=== PATIENT | female | born 1995 ===

== ENCOUNTER 2017-06-09 14:21 | Emergency (ER) | payer BC ==
[2017-06-09 14:21] VITALS: BMI 29.9
--- NOTE | 2017-06-09 15:42 | RAD ---
HISTORY: pain COMPARISON: Chest x-ray performed 06/27/14 TECHNIQUE: Chest PA and lateral FINDINGS: Examination limited by habitus. LUNGS: No focal consolidation. Please note that chest x-ray has limited sensitivity for the detection of pulmonary masses. PLEURA: No significant pleural effusion identified. No definite pneumothorax . CARDIOVASCULAR: Heart size appears within normal limits. OSSEOUS STRUCTURES: No acute osseous abnormality identified. VISUALIZED UPPER ABDOMEN: Unremarkable. OTHER FINDINGS: None. IMPRESSION: No focal consolidation, significant pleural effusion, or definite pneumothorax identified.
--- NOTE | 2017-06-09 16:24 | C.PDOC ---
History Of Present Illness 21 y/o female presents to ED with complaints of right breast pain for 4 days. Patient states she had breast augmentation 1 year ago in [place]. Patient reports she" feels like liquid is moving inside" worse with movement. Patient denies discharge, fever, redness, trauma, nausea, vomiting, numbness or any other complaints at this time. Time Seen by Provider: 06/09/17 14:49 Chief Complaint (Nursing): Breast Problem History Per: Patient History/Exam Limitations: no limitations Onset/Duration Of Symptoms: Days Current Symptoms Are (Timing): Still Present Past Medical History Reviewed: Historical Data, Nursing Documentation, Vital Signs Vital Signs: Last Vital Signs Temp 98 F 06/09/17 16:41 Pulse 84 06/09/17 16:41 Resp 20 06/09/17 16:41 BP 115/75 06/09/17 16:41 Pulse Ox 100 06/09/17 17:38 - [facility] Procedures LOW CERVICAL (06/05/14) Family History: States: Unknown Family Hx - Social History Hx Tobacco Use: No Hx Alcohol Use: No Hx Substance Use: No - Immunization History Hx Tetanus Toxoid Vaccination: Yes Hx Influenza Vaccination: No Hx Pneumococcal Vaccination: No Review Of Systems Except As Marked, All Systems Reviewed And Found Negative. Constitutional: Negative for: Fever, Chills Respiratory: Negative for: Shortness of Breath Gastrointestinal: Negative for: Nausea, Vomiting Skin: Negative for: Rash, Bruising Neurological: Negative for: Weakness, Numbness Physical Exam - Physical Exam Appears: Non-toxic, No Acute Distress Skin: Normal Color, Warm, Dry, No Rash Head: Atraumatic, Normacephalic Eye(s): bilateral: Normal Inspection, EOMI Nose: Normal Oral Mucosa: Moist Neck: Normal ROM, Supple Lymphatic: Normal Exam, No Axilla Node Tenderness Chest: Symmetrical, Tenderness (at 7'oclock right breast, no erythema, fluctuance. Incision healed. ) Cardiovascular: Rhythm Regular Respiratory: Normal Breath Sounds, No Wheezing Extremity: Normal ROM (Pain aggrevated with abduction on the right shoulder.), Capillary Refill (<2 seconds) Extremity: Bilateral: Atraumatic Neurological/Psych: Oriented x3, Normal Speech, Normal Cognition, Normal Sensation ED Course And Treatment O2 Sat by Pulse Oximetry: 100 (RA) Pulse Ox Interpretation: Normal - Other Rad Chest xray X-Ray: Viewed By Me, Read By Radiologist Interpretation: HISTORY: pain. COMPARISON: Chest x-ray performed 06/27/14. TECHNIQUE: Chest PA and lateral. FINDINGS: Examination limited by habitus. LUNGS: No focal consolidation. Please note that chest x-ray has limited sensitivity for the detection of pulmonary masses. PLEURA: No significant pleural effusion identified. No definite pneumothorax . CARDIOVASCULAR: Heart size appears within normal limits. OSSEOUS STRUCTURES: No acute osseous abnormality identified. VISUALIZED UPPER ABDOMEN: Unremarkable. OTHER FINDINGS: None. IMPRESSION: No focal consolidation, significant pleural effusion, or definite pneumothorax identified. - CT Scan/US right breast Other Rad Studies (CT/US): Read By Radiologist, Radiology Report Reviewed CT/US Interpretation: EXAM: US Right Breast Complete. EXAM DATE/TIME: 2016 2:54 PM. CLINICAL HISTORY: 21 years old, female; Pain; Breast pain; Right ; Prior surgery; Surgery date: 6+ months. TECHNIQUE: Static sonographic images of the right breast with image documentation utilizing a linear transducer. Imaging was obtained in all four quadrants, retroareolar region, and the axillae. COMPARISON: No relevant prior studies available. FINDINGS: Solid nodules: None. Cystic masses: None. Architectural distortion: None. Acoustical shadowing: None. Skin thickening: None. Axillary adenopathy: None. IMPRESSION: No mass is identified. Progress Note: Pt refused pain medicaiton. Discussed with pt results and the limitations of ER, instructed to follow up with surgeon in 1-2 days for re- evaluation. Discussed signs and symptoms of concern. Reevaluation Time: 16:31 Reassessment Condition: Improved Disposition - Disposition Referrals: Vin Sandhu MD [Staff Provider] - Disposition: HOME/ ROUTINE Disposition Time: 16:33 Condition: STABLE Additional Instructions: Follow up with breast surgeon in 1-2 days. Prescriptions: Naproxen [Naprosyn] 1 tab PO BID PRN #20 tab PRN Reason: Pain Instructions: Breast Mass (ED) Forms: [facility] (Bahraini) Print Language: DIVEHI - Clinical Impression Clinical Impression: Breast pain - PA / WETLAND SCIENTIST / Resident Statement MD/DO has reviewed & agrees with the documentation as recorded. - Scribe Statement The provider has reviewed the documentation as recorded by the Kellyiblily Del Rosario All medical record entries made by the Scribe were at my direction and personally dictated by me. I have reviewed the chart and agree that the record accurately reflects my personal performance of the history, physical exam, medical decision making, and the department course for this patient. I have also personally directed, reviewed, and agree with the discharge instructions and disposition.
[2017-06-09 16:42] VITALS: BP 115/75; PULSE 84; RESP 20; TEMP 98
[2017-06-09 16:47] VITALS: O2SAT 100
--- NOTE | 2017-06-10 17:11 | US ---
PROCEDURE: Ultrasound bilateral breast HISTORY: pain COMPARISON: Not available TECHNIQUE: Ultrasound examination was performed throughout the right breast. FINDINGS: The patient is status post right augmentation mammoplasty. There is no solid or cystic mass identified. The prosthesis appears intact. There is no evidence of prosthesis rupture. There is no axillary lymphadenopathy identified. IMPRESSION: Right breast prosthesis appears intact. No additional abnormality. Preliminary interpretation of this examination was reported by [facility] at 5:02 p.m. on 06/09/2017. There is concurrence of this report with the preliminary interpretation.
== END 2017-06-09 16:42 | disposition home or self-care (01) ==
LOC: C.ER 14:21
DX: N64.4 Mastodynia (principal)

== ENCOUNTER 2018-05-20 17:11 | Emergency (ER) | payer BC ==
[2018-05-20 17:12] VITALS: BMI 29.9
[2018-05-20 17:19] VITALS: RESP 18
--- NOTE | 2018-05-20 17:46 | C.PDOC ---
History Of Present Illness 22 y/o female presents to the ED complaining of gradual onset headache to left side head starting about 4 days ago. Patient states headache resolved with 2 advil but returns. On first day of headache, pt had several episodes of vomiting. She then noticed redness in left eye. Patient no longer vomiting, tolerates PO food and fluids. Patient with one episode of watery stool today. Otherwise denies any abdominal pain, fever, blurred vision, neck stiffness, dizziness, photophobia. Time Seen by Provider: 05/20/18 17:30 Chief Complaint (Nursing): Headache History Per: Patient History/Exam Limitations: no limitations Onset/Duration Of Symptoms: Days Current Symptoms Are (Timing): Still Present Past Medical History Reviewed: Historical Data, Nursing Documentation, Vital Signs Vital Signs: Last Vital Signs Temp 98.6 F 05/20/18 19:00 Pulse 54 L 05/20/18 19:00 Resp 18 05/20/18 19:00 BP 100/61 05/20/18 19:00 Pulse Ox 97 05/20/18 19:19 - Medical History PMH: No Chronic Diseases Surgical History: Hernia Repair, Other Surgeries: Breast surgery - [facility] Procedures LOW CERVICAL (06/05/14) Family History: States: Unknown Family Hx - Social History Hx Tobacco Use: No Hx Alcohol Use: No Hx Substance Use: No - Immunization History Hx Tetanus Toxoid Vaccination: Yes Hx Influenza Vaccination: No Hx Pneumococcal Vaccination: No Review Of Systems Constitutional: Negative for: Fever, Chills Eyes: Positive for: Redness (left eye). Negative for: Vision Change, Other ( photophobia) Gastrointestinal: Positive for: Vomiting (now resolved), Diarrhea. Negative for : Abdominal Pain Neurological: Positive for: Headache. Negative for: Weakness, Numbness, Dizziness Physical Exam - Physical Exam Appears: Non-toxic, No Acute Distress Skin: No Rash Head: Atraumatic, Normacephalic Eye(s): bilateral: PERRL, EOMI Oral Mucosa: Moist Neck: Normal ROM, No Midline Cervical Tenderness, Supple, No Other (nuchal rigidity) Chest: No Tenderness Cardiovascular: Rhythm Regular, No Murmur Respiratory: Normal Breath Sounds, No Rales, No Rhonchi, No Wheezing Gastrointestinal/Abdominal: Bowel Sounds (normoactive), Soft, No Tenderness, No Distention Extremity: Normal ROM, No Calf Tenderness, No Swelling Neurological/Psych: Oriented x3, Normal Speech, Normal Cranial Nerves, Normal Motor, Normal Sensation ED Course And Treatment O2 Sat by Pulse Oximetry: 97 (RA) Pulse Ox Interpretation: Normal Medical Decision Making Medical Decision Making: Impression: 22 year old with headache Plan: --POC urine preg --IV [id number] pt rpeorts replution of headache. fully comfortable. will d/c home with clinic f/u Disposition Counseled Patient/Family Regarding: Diagnosis, Need For Followup - Disposition Referrals: [facility] [Outside] Disposition: HOME/ ROUTINE Disposition Time: 19:16 Condition: IMPROVED Additional Instructions: Drink increased fluids. Stay well hydrated. Follow up in medical clinic in a few days- call for an appointment. Return to ER for severe headache, vomiting. or any other concerning symptoms. Instructions: Headache, Adult (DC) Forms: General Discharge Instructions, Gen Discharge Inst Mauritanian, [employer] [facility] (Mauritanian) Print Language: CENTRAL AFRICAN - Clinical Impression Clinical Impression: Headache - PA / PARK RANGER / Resident Statement MD/DO has reviewed & agrees with the documentation as recorded. - Scribe Statement The provider has reviewed the documentation as recorded by the Scribe (Kathy Styles) All medical record entries made by the Scribe were at my direction and personally dictated by me. I have reviewed the chart and agree that the record accurately reflects my personal performance of the history, physical exam, medical decision making, and the department course for this patient. I have also personally directed, reviewed, and agree with the discharge instructions and disposition.
[2018-05-20] MEDS ORDERED: Sodium Chloride 0.9% 1,000 ML IV SCH (18:00)
[2018-05-20] MEDS ORDERED: Sodium Chloride 0.9% 1,000 ML ONE (18:07)
[2018-05-20 19:01] VITALS: BP 100/61; PULSE 54; TEMP 98.6
[2018-05-20 19:09] VITALS: O2SAT 97
== END 2018-05-20 19:30 | disposition home or self-care (01) ==
LOC: C.ER 17:11
DX: R51 Headache (principal)
CPT/HCPCS: 96361; 96374; 99285; J2765; J7030

== ENCOUNTER 2018-07-13 14:55 | Emergency (ER) | payer BC ==
[2018-07-13 14:56] VITALS: BMI 29.9
[2018-07-13 15:22] VITALS: O2SAT 100
--- NOTE | 2018-07-13 15:54 | RAD ---
HISTORY: Chest pain and cough COMPARISON: 06/09/2017 TECHNIQUE: Chest PA and lateral FINDINGS: LINES AND TUBES: None. LUNG AND PLEURA: The lungs are well inflated and clear. No pleural effusion or pneumothorax. HEART AND MEDIASTINUM: The heart is not enlarged. The hilar and mediastinal contours are within normal limits. SKELETAL STRUCTURES: The bony structures are within normal limits for the patient's age. VISUALIZED UPPER ABDOMEN: Normal. OTHER FINDINGS: None. IMPRESSION: No active pulmonary disease.
--- NOTE | 2018-07-13 17:16 | C.PDOC ---
History Of Present Illness 22-year-old female, presents to the emergency department with complaints of right breast pain, worse with deep breathing. Patient has a Hx of breast Augmentation in [place] 2.5 years ago. Patient denies any shortness of breath, rash, or any other associated symptoms. No other complaints at this time. Time Seen by Provider: 07/13/18 15:15 Chief Complaint (Nursing): Chest Pain Past Medical History Reviewed: Historical Data, Nursing Documentation, Vital Signs Vital Signs: Last Vital Signs Temp 98.6 F 07/13/18 15:15 Pulse 61 07/13/18 15:15 Resp 18 07/13/18 15:15 BP 102/53 L 07/13/18 15:15 Pulse Ox 100 07/13/18 15:15 Surgical History: Hernia Repair, - [facility] Procedures LOW CERVICAL (06/05/14) Family History: States: No Known Family Hx - Social History Hx Tobacco Use: No Hx Alcohol Use: No Hx Substance Use: No - Immunization History Hx Tetanus Toxoid Vaccination: Yes Hx Influenza Vaccination: No Hx Pneumococcal Vaccination: No Review Of Systems Constitutional: Negative for: Fever, Chills Cardiovascular: Negative for: Chest Pain Respiratory: Negative for: Shortness of Breath Gastrointestinal: Negative for: Nausea, Vomiting Musculoskeletal: Negative for: Back Pain Skin: Negative for: Rash Neurological: Negative for: Weakness, Numbness, Headache, Dizziness Physical Exam - Physical Exam Appears: Non-toxic, No Acute Distress Skin: Warm, Dry, No Rash Head: Atraumatic, Normacephalic Eye(s): bilateral: Normal Inspection Nose: Normal Oral Mucosa: Moist Lips: Normal Appearing Neck: Normal ROM Chest: Other (Mild tenderness to palpation at the right inferior breast, No erythema, fluctuance or induration. There are B/L surgical scars inferior to nipples.) Cardiovascular: Rhythm Regular, No Murmur Respiratory: Normal Breath Sounds, No Accessory Muscle Use Gastrointestinal/Abdominal: Soft, No Tenderness Extremity: Normal ROM, No Deformity Neurological/Psych: Oriented x3, Normal Speech ED Course And Treatment ECG: Interpreted By Me, Viewed By Me ECG Rhythm: Sinus Rhythm ECG Interpretation: No Acute Changes Rate From EC O2 Sat by Pulse Oximetry: 100 (RA) Pulse Ox Interpretation: Normal Progress Note: Chest X-Ray US abdomen and UA ordered and reviewed. Patient treated with Tylenol Disposition Counseled Patient/Family Regarding: Studies Performed, Diagnosis, Need For Followup - Disposition Referrals: Aide Lubin MD [Staff Provider] - Disposition: HOME/ ROUTINE Disposition Time: 19:10 Condition: STABLE Additional Instructions: FOLLOW UP WITH SURGEON WITHIN 1 WEEK RETURN TO EMERGENCY ROOM IF SYMPTOMS WORSEN SEGUIMIENTO CON CIRUJANO DENTRO DE 1 SEMANA REGRESE AL MARIAN DE EMERGENCIA SI LOS SNTOMAS EMPEORAN Prescriptions: Naproxen 375 mg PO BID PRN #20 tablet PRN Reason: pain Forms: [employer] (Yi) Print Language: CITIZEN OF [place] - Clinical Impression Clinical Impression: Breast pain, right, H/O breast implant - Scribe Statement The provider has reviewed the documentation as recorded by the Scribe (Elio Rivera) Provider Attestation: All medical record entries made by the Scribe were at my direction and personally dictated by me. I have reviewed the chart and agree that the record accurately reflects my personal performance of the history, physical exam, medical decision making, and the department course for this patient. I have also personally directed, reviewed, and agree with the discharge instructions and disposition.
--- NOTE | 2018-07-13 18:17 | US ---
Date of service: 07/13/2018 HISTORY: Right breast pain. Relevant surgical history: Bilateral implants 2-5 years ago TECHNIQUE: Sonographic evaluation of both breast was performed. FINDINGS: RIGHT BREAST: Cyst(s): Simple cyst 2 x 3 mm 6 o'clock 2 cm from nipple Breast mass: None Dilated ducts: None Parenchymal distortion: None Skin thickening or subcutaneous abnormalities: None Incomplete visualization of underlying implant. Morphologically, unremarkable lymph node(s) IMPRESSION: No significant or acute findings to account for/ related to the clinical presentation. BIRADS: BIRADS 2 Benign findings. Recommendation: Continue annual screening mammography, as per ACR guidelines.
[2018-07-13 19:15] VITALS: BP 116/79; PULSE 60; RESP 20; TEMP 99
--- NOTE | 2018-07-15 12:38 | CARD ---
APPROVED REPORT Date of service: 07/13/2018 EKG Measurement Heart [id number] <Conclusion> Normal sinus rhythm with sinus arrhythmia Normal ECG
== END 2018-07-13 19:34 | disposition home or self-care (01) ==
LOC: C.ER 14:55
DX: N64.4 Mastodynia (principal); Z98.890 Other specified postprocedural states